=== PATIENT | female | born 1975 ===

== ENCOUNTER 2020-03-27 10:03 | Day surgery (SDC) | payer BC, OTHER ==
[~2020-03-27 10:03] MED LIST: Lactated Ringers 1,000 ML IV SCH; Midazolam 1 MG/ML 2 ML SDV ONE; Ondansetron 4 MG/2 ML SDV ONE; Propofol 200 MG/20 ML SDV ONE; Sodium Chloride 0.9% 10 ML SDV IV PRN; Sodium Chloride 0.9% 10 ML Syringe FLUSH PRN; Sodium Chloride 0.9% 2.5 ML Syringe FLUSH PRN; fentaNYL 100 MCG/2 ML SDV ONE
[2020-03-27] MEDS ORDERED: Glycopyrrolate 0.2 MG/ML SDV ONE (10:42)
[2020-03-27] MEDS ORDERED: Propofol 200 MG/20 ML SDV ONE ×4 (10:42→11:39)
[2020-03-27] MEDS ORDERED: Ketorolac 30 MG/ML SDV ONE (10:43)
[2020-03-27] MEDS ORDERED: Rocuronium Bromide 50 MG/5 ML Syringe ONE (10:43)
[2020-03-27] MEDS ORDERED: Dexamethasone 4 MG/ML 5 ML MDV ONE ×2 (10:43→12:14)
[2020-03-27] MEDS ORDERED: ceFAZolin 1 GM Vial ONE (11:02)
--- NOTE | 2020-03-27 11:27 | PCM.PREANE ---
Preanesthetic Assessment - Anesthesia/Transfusion/Family Hx Anesthesia History: Prior Anesthesia Without Reaction Family History of Anesthesia Reaction: No Transfusion History: No Prior Transfusion(s) Intubation History: Unknown - Review of Systems General: No Symptoms Pulmonary: No Symptoms Cardiovascular: No Symptoms Gastrointestinal: No Symptoms, Other (Crohns disease in clinical remission) Neurological: No Symptoms Other: Reports: None - Physical Assessment Height: 5 ft 5 in Weight: 56.699 kg ASA Class: 2 Mental Status: Alert & Oriented x3 Airway Class: Mallampati = 1 Dentition: Reports: Normal Dentition (veneers x2 upper front teeth), [place](s) (x2 upper and lower (back)) Thyro-Mental Finger Breadths: 3 Mouth Opening Finger Breadths: 3 ROM/Head Extension: Full Lungs: Clear to Auscultation, Normal Respiratory Effort Cardiovascular: Regular Rate, Regular Rhythm - Lab Values: Laboratory Last Values Urine HCG, Qual NEGATIVE (NEGATIVE) 03/27/20 10:10 - Allergies Allergies/Adverse Reactions: Allergies Allergy/AdvReac Type Severity Reaction Status Date / Time No Known Allergies Allergy Verified 03/24/20 09:44 - Blood Blood Available: No - Anesthesia Plan Pre-Op Medication Ordered: None - Acknowledgements Anesthesia Type Planned: MAC Pt an Appropriate Candidate for the Planned Anesthesia: Yes Alternatives and Risks of Anesthesia Discussed w Pt/Guardian: Yes Pt/Guardian Understands and Agrees with Anesthesia Plan: Yes PreAnesthesia Questionnaire HEENT History: Reports: None Cardiovascular History: Reports: None Respiratory History: Reports: None Gastrointestinal History: Reports: Other (See Below) Other Gastrointestinal History: states has chrons disease, last flare-up 6 years ago- now under control with meds Genitourinary History: Reports: None Musculoskeletal History: Reports: Fracture Other Musculoskeletal History: states fractured shins when in highschool Neurological History: Reports: None Psychiatric History: Reports: None Endocrine/Metabolic History: Reports: None Hematologic History: Reports: None Immunologic History: Reports: None Oncologic (Cancer) History: Reports: None Dermatologic History: Reports: None - Infectious Disease History Infectious Disease History: Reports: Chicken Pox Other Infectious Disease History: when a child - Past Surgical History Head Surgeries/Procedures: Reports: None HEENT Surgical History: Reports: None Cardiovascular Surgical History: Reports: None GI Surgical History: Reports: Colonoscopy (last one 7 years ago) Female Surgical History: Reports: Breast Implant Endocrine Surgical History: Reports: None Neurological Surgical History: Reports: None Musculoskeletal Surgical History: Reports: Other (See Below) Other Musculoskeletal Surgeries/Procedures:: states had knee surgery and left hand reconstruction surgery - SUBSTANCE USE Tobacco Use Status *Q: Never Tobacco User - HOME MEDS Home Medications: Home Meds Cannabidiol (Cbd) Extract [CBD Oil] 1 tab PO DAILY 03/24/20 [History] Mesalamine [Apriso] 1 tab PO DAILY 03/24/20 [History] - CURRENT (IN HOUSE) MEDS Current Meds: Current Medications Lactated Ringer's (Ringers, Lactated) 1,000 mls @ 125 mls/hr IV ASDIRECTED BEAR Sodium Chloride (Saline Flush) 10 ml FLUSH ASDIRECTED PRN PRN Reason: Keep Vein Open Sodium Chloride (Saline Flush) 2.5 ml FLUSH ASDIRECTED PRN PRN Reason: Keep Vein Open Sodium Chloride (Saline Flush) 10 ml FLUSH ASDIRECTED PRN PRN Reason: Keep Vein Open Sodium Chloride (Saline Flush) 2.5 ml FLUSH ASDIRECTED PRN PRN Reason: Keep Vein Open Sodium Chloride (Normal Saline) 10 ml IV ASDIRECTED PRN PRN Reason: IV Use Discontinued Medications Cefazolin Sodium (Ancef) Confirm Administered Dose 2 gm .ROUTE .STK-MED ONE Stop: 03/27/20 11:03 Dexamethasone (Dexamethasone) Confirm Administered Dose 20 mg .ROUTE .STK-MED ONE Stop: 03/27/20 10:44 Fentanyl (Sublimaze) Confirm Administered Dose 100 mcg .ROUTE .STK-MED ONE Stop: 03/27/20 07:28 Glycopyrrolate (Robinul) Confirm Administered Dose 0.2 mg .ROUTE .STK-MED ONE Stop: 03/27/20 10:43 Acetaminophen (Ofirmev) Confirm Administered Dose 100 mls @ as directed .ROUTE .STK-MED ONE Stop: 03/27/20 10:45 Ketorolac Tromethamine (Toradol) Confirm Administered Dose 30 mg .ROUTE .STK-MED ONE Stop: 03/27/20 10:44 Midazolam HCl (Versed 1 Mg/Ml) Confirm Administered Dose 2 mg .ROUTE .STK-MED ONE Stop: 03/27/20 07:28 Ondansetron HCl (Zofran) Confirm Administered Dose 4 mg .ROUTE .STK-MED ONE Stop: 03/27/20 07:28 Propofol (Diprivan 20 Ml) Confirm Administered Dose 200 mg .ROUTE .STK-MED ONE Stop: 03/27/20 07:28 Propofol (Diprivan 20 Ml) Confirm Administered Dose 200 mg .ROUTE .STK-MED ONE Stop: 03/27/20 10:43 Rocuronium [place] (Rocuronium [place]) Confirm Administered Dose 50 mg .ROUTE .STK-MED ONE Stop: 03/27/20 10:44
[2020-03-27] MEDS ORDERED: Midazolam 1 MG/ML 2 ML SDV ONE (11:33)
[2020-03-27] MEDS ORDERED: fentaNYL 100 MCG/2 ML SDV ONE (11:33)
[2020-03-27] MEDS ORDERED: Morphine 10 MG/ML Syringe ONE (11:38)
[2020-03-27] MEDS ORDERED: cefOXitin 1 GM Vial ONE (12:12)
[2020-03-27] MEDS ORDERED: Ondansetron 4 MG/2 ML SDV ONE (12:14)
[2020-03-27] MEDS ORDERED: ePHEDrine 50 MG/ML SDV ONE (12:22)
--- NOTE | 2020-03-27 12:32 | PCM.OPNOTE ---
- General Post-Op/Procedure Note Date of Surgery/Procedure: 03/27/20 Operative Procedure(s): Diagnostic colonoscopy Findings: Normal appearing colonoscopy Pre Op Diagnosis: History of Ulcerative Colitis Post-Op Diagnosis: same Anesthesia Technique: MAC Primary Surgeon: Tania Guzman Condition: Good
--- NOTE | 2020-03-27 12:46 | PCM.POSTAN ---
POST ANESTHESIA ASSESSMENT - MENTAL STATUS Mental Status: Alert, Oriented - VITAL SIGNS Vital Signs: Last Vital Signs Temp 35.0 C L 03/27/20 10:40 Pulse 60 03/27/20 12:43 Resp 6 L 03/27/20 12:43 BP 112/68 03/27/20 12:43 Pulse Ox 99 03/27/20 12:43 - RESPIRATORY Respiratory Status: Respiratory Rate WNL, Airway Patent, O2 Saturation Stable - CARDIOVASCULAR CV Status: Pulse Rate WNL, Blood Pressure Stable - GASTROINTESTINAL GI Status: No Symptoms - PAIN Pain Score: 0 - POST OP HYDRATION Hydration Status: Adequate & Stable - OBSERVATIONS Free Text/Narrative:: No anesthesia problems
--- NOTE | 2020-03-27 13:06 | PCM48HPAN ---
Post Anesthesia Note - EVALUATION WITHIN 48HRS OF ANESTHETIC Vital Signs in Normal Range: Yes Patient Participated in Evaluation: Yes Respiratory Function Stable: Yes Airway Patent: Yes Cardiovascular Function Stable: Yes Hydration Status Stable: Yes Pain Control Satisfactory: Yes Nausea and Vomiting Control Satisfactory: Yes Mental Status Recovered: Yes Vital Signs: Last Vital Signs Temp 35.0 C L 03/27/20 10:40 Pulse 60 03/27/20 12:43 Resp 6 L 03/27/20 12:43 BP 112/68 03/27/20 12:43 Pulse Ox 99 03/27/20 12:43 - COMMENTS/OBSERVATIONS Free Text/Narrative:: No anesthesia problems
--- NOTE | 2020-03-27 15:01 | OR ---
SURGEON: TANIA GUZMAN MD DATE OF PROCEDURE: 03/27/2020 PREOPERATIVE DIAGNOSIS: History of ulcerative colitis. POSTOPERATIVE DIAGNOSIS: History of ulcerative colitis. PROCEDURE PERFORMED: Diagnostic colonoscopy. PRIMARY SURGEON: Tania Guzman MD ANESTHESIA: MAC. INSTRUMENT USED: Olympus colonoscope. EXTENT OF EXAM: To the cecum. PREPARATION: Good. LIMITATIONS: None. INDICATIONS FOR EXAMINATION: The patient is a 44-year-old female who presents for a diagnostic colonoscopy due to a history of ulcerative colitis. She is currently well controlled on medications and has not had a flare in a very long period of time. I explained the need for a repeat scope. I explained the procedure, expected perioperative course, and the risks. She verbalized understanding and wishes to proceed. PROCEDURE IN DETAIL: The patient was brought into the endoscopy suite and placed in a left lateral decubitus position. A time-out was completed verifying the patient's name, age, date of , allergies, and procedure to be performed. Monitored anesthesia care was induced and continuous oxygen was provided via nasal cannula throughout the procedure. After adequate sedation was achieved, a digital rectal exam was performed. This exam was within normal limits. A well-lubricated colonoscope was inserted in the rectum and advanced under direct visualization to the level of the cecum. The cecum was identified by both visual and anatomic landmarks. A photograph was taken of the cecal cap as well as with the scope retroflexed within the cecum. The scope was then fully withdrawn while examining the color, texture, anatomy, and integrity of the mucosa from the cecum to the anal canal. The patient's terminal ileum appeared healthy with no evidence of disease. The mucosa inside the terminal ileum appeared healthy. A random biopsy was taken of the cecal cap and sent to pathology, labeled as cecal biopsy. The remainder of the colon appeared normal with no evidence of any inflammatory disease or polyps. Random biopsies were taken as well of the transverse colon, descending colon, and sigmoid colon. The scope was then brought into the rectum and retroflexed to allow visualization of the anal canal opening. This appeared normal and a photograph was taken. The scope was then straightened out and fully withdrawn. The cecum to anus time was 8 minutes. The patient tolerated the procedure well and was transferred to the PACU in stable condition. ENDOSCOPIC DIAGNOSIS: History of ulcerative colitis. RECOMMENDATIONS: We will review the patient's biopsy results and determine when her next diagnostic colonoscopy should be. MARIO RODRIGUEZ /[id number]
== END 2020-03-27 13:12 | disposition home or self-care (01) ==
LOC: MW.SDS 10:03
PROVIDERS: ATTEND Surgery
DX: K50.90 Crohn's disease, unspecified, without complications (principal); Z98.890 Other specified postprocedural states
CPT/HCPCS: 45380; 81025; J0131; J0694; J1100; J2001; J2250; J2405; J2704; J3010; J7120; J0690; J1885; J2270; J3490